=== PATIENT | female | born 1980 | race African-American/Black ===

== ENCOUNTER 2017-02-26 11:55 | Emergency (ER) | payer BC ==
[~2017-02-26 11:55] MED LIST: DENIES HOME MEDS
== END 2017-02-26 13:25 | disposition home or self-care (01) ==
LOC: ER 11:55
DX: O99.511 Diseases of the respiratory system complicating pregnancy, first trimester (principal); J45.901 Unspecified asthma with (acute) exacerbation; Z88.0 Allergy status to penicillin; Z88.1 Allergy status to other antibiotic agents; Z88.5 Allergy status to narcotic agent; Z3A.12 12 weeks gestation of pregnancy
CPT/HCPCS: 94640; 99284